=== PATIENT | female | born 1940 | race Caucasian/White ===

== ENCOUNTER 2017-03-23 20:08 | Emergency (ER) | payer OTHER ==
--- NOTE | ~2017-03-23 | EKG ---
PATIENT: TRICIA BECKER UNIT #: [id number] Ventricular Rate: 77 BPM Atrial Rate: 77 BPM P-R Interval: 164 ms QRS Duration: 78 ms Q-T Interval: 378 ms QTC Calculation(Bezet): 427 ms P Fulton: 20 degrees Calculated R [place]ulton: -10 degrees Calculated T Fulton: 61 degrees Diagnosis Line: Normal sinus rhythm Diagnosis Line: Normal ECG Diagnosis Line: When compared with ECG of 22-JUN-2014 12:09, Diagnosis Line: No significant change was found Diagnosis Line: Confirmed by ARMANDO OLIVEIRA MD ([id number]) on Diagnosis Line: 04/01/2017 8:27:57 AM INTERPRETING MD: TEE CLAIRE
--- NOTE | ~2017-03-23 | CT71 ---
[facility] A Service of [facility] RADIOLOGY TEXT RESULTS PATIENT: TRICIA BECKER LOCATION: SED : 38 UNIT #: [id number] AGE: [address]: TASHA LEMOS SEX: F ORDER DR: [id number] [place] [id number] E MR#: [id number] #: [id number] NAME: TRICIA BECKER. : 1940 SEX: F STUDY DATE/TIME: 03/23/2017 21:09 UNIT: SED ROOM: STUDY DESCRIPTION: CT Head Wo Contrast Attending Physician: Tasha Lemos Aprn Ordering Physician: Tasha Lemos Aprn Primary Care Physician: Chasity Turcios M.D. MEDICAL IMAGING REPORT This report is preliminary unless electronic signature is present. REVISED REPORT EXAM Head CT, no contrast, 03/23/17. INDICATIONS Syncopal episode prior to arrival, weakness, diabetes issues. TECHNIQUE Noncontrast CT of the brain was performed. We have no comparison studies. This CT exam was performed with one or more of the following radiation dose reduction techniques: automatic exposure control, adjustment of mA and/or kV according to patient size, and iterative reconstruction. FINDINGS CT BRAIN Sulci and ventricles are unremarkable. No midline shift. No evidence of acute intracranial hemorrhage. There is no mass, mass effect or edema to suggest acute infarct and no extraaxial fluid collections are present. Mild periventricular white matter changes are most characteristic of chronic ischemic small vessel disease. Probable chronic, but technically age indeterminate, lacunar infarct in the head of the caudate nucleus on the right. Globes are intact. Bones are intact. Sinuses clear. IMPRESSION 1. Atrophy and probable chronic ischemic changes. No clearly acute intracranial process. 2. Probable very tiny lacunar infarct in the right caudate nucleus. This is age indeterminate without prior studies for comparison, but likely represents a chronic finding. 3. Not mentioned above, incidental basal ganglia calcifications bilaterally. These appear physiologic. [facility] A Service of [facility] RADIOLOGY TEXT RESULTS PATIENT: TRICIA BECKER LOCATION: [facility] : 38 UNIT #: [id number] AGE: [address]: TASHA LEMOS SEX: F ORDER DR: Dictated by... David Bennett M.D. THIS IS AN ELECTRONICALLY VERIFIED REPORT David Bennett M.D. at 03/24/2017 2:33 PM NATHALIE/luis angel TD: 03/24/2017 08:48 JOB #: [id number] CC: Jesse/alivia Please Delete MEDICAL IMAGING REPORT Page 1 of 1
--- NOTE | ~2017-03-23 | CR63 ---
[facility] A Service of [facility] RADIOLOGY TEXT RESULTS PATIENT: TRICIA BECKER LOCATION: SED : 38 UNIT #: [id number] AGE: [address]: TASHA LEMOS SEX: F ORDER DR: [id number] [place] [id number] E MR#: [id number] Acc #: [id number] NAME: TRICIA BECKER. : 1940 SEX: F STUDY DATE/TIME: 03/23/2017 21:39 UNIT: SED ROOM: STUDY DESCRIPTION: CR Chest 2 View Attending Physician: Tasha Lemos Aprn Ordering Physician: Tasha Lemos Aprn Primary Care Physician: Chasity Turcios M.D. MEDICAL IMAGING REPORT This report is preliminary unless electronic signature is present. EXAM Two-view chest 03/23/2017 INDICATIONS 76-year-old female with altered consciousness. Left-sided weakness. Symptoms began just prior to arrival. Brought in by EMS. History of bladder and renal malignancy. TECHNIQUE Two-view chest no comparisons. FINDINGS Cardiac silhouette borderline in size. Aorta atherosclerotic. Vascularity within normal limits. Lung volumes are low and there is bronchovascular crowding. There is no dense consolidation or effusion. No pneumothorax. CP angles excluded from view on the lateral projection. IMPRESSION 1. Borderline cardiac size and low lung volumes. No effusion or dense consolidation. We have no comparisons. 2. There are some areas of probable band-like atelectasis in the lingula/right middle lobe on the lateral view. Dictated by... David Bennett M.D. THIS IS AN ELECTRONICALLY VERIFIED REPORT David Bennett M.D. at 03/24/2017 2:35 PM NATHALIE/nery TD: 03/24/2017 09:20 [facility] A Service [facility] RADIOLOGY TEXT RESULTS PATIENT: TRICIA BECKER LOCATION: SED : 38 UNIT #: [id number] AGE: [address]: TASHA LEMOS SEX: F ORDER DR: AMA #: [id number] MEDICAL IMAGING REPORT Page 1 of 1
[2017-03-23 21:12] LABS: BASOPHIL% 0.4 % (0-2.5); EOSINOPHIL% 0.4 % (0.0-7.0); HEMATOCRIT 39.8 % (35.0-45.0); HEMOGLOBIN 13.3 gm/dL (12.0-16.0); LYMPHOCYTE# 0.6 X10e3 (1.0-3.5); LYMPHOCYTE% 9.3 % (17.0-45.0); MEAN CELL VOLUME 81.1 FL (83-96); MEAN CORPUSCULAR HGB CONC 33.3 g/dL (30-36); MEAN PLATELET VOLUME 7.9 FL (6.5-11.5); MONOCYTE# 0.5 X10e3 (0-1.0); MONOCYTE% 8.4 % (3.0-12.0); NEUTROPHIL# 5.1 X10e3 (1.5-7.1); NEUTROPHIL% 81.5 % (40-75); PLATELET COUNT 131 X10e3 (140-420); RED BLOOD COUNT 4.91 X10e (3.90-5.30); RED CELL DISTRIBUTION WIDTH 20.7 % (11.0-15.5); WHITE BLOOD COUNT 6.3 X10e3 (4.0-10.5)
[2017-03-23 21:16] LABS: DIFF IND NO
[2017-03-23 21:18] LABS: POC - CKMB 1.5 ng/mL (0.0-7.9); POC - TROPONIN <0.05 ng/mL (<=0.05)
[2017-03-23 21:29] LABS: ALBUMIN SERUM 3.6 g/dL (3.5-5.0); BILIRUBIN, DIRECT 0.3 mg/dL (0.0-0.2); BILIRUBIN,TOTAL 1.3 mg/dL (0.2-2.0); BUN/CREATININE RATIO 11.42; CALCIUM SERUM 9.3 mg/dL (8.4-10.2); CREATININE SERUM 1.4 mg/dL (0.6-1.4); GLOM FILT RATE Estimated 35.9 mL/min (>60); POTASSIUM 3.1 mmol/L (3.5-5.1); PROTEIN TOTAL SERUM 7.6 g/dL (6.0-8.3)
[2017-03-23 22:40] LABS: POC - CKMB 1.3 ng/mL (0.0-7.9); POC - TROPONIN <0.05 ng/mL (<=0.05)
== END 2017-03-23 23:40 | disposition left against medical advice (07) ==
LOC: SED 20:08
PROVIDERS: Nurse Practitioner Family
DX: R55 Syncope and collapse (principal); R41.82 Altered mental status, unspecified; E78.5 Hyperlipidemia, unspecified; E11.9 Type 2 diabetes mellitus without complications; N28.9 Disorder of kidney and ureter, unspecified; Z90.49 Acquired absence of other specified parts of digestive tract; Z98.890 Other specified postprocedural states; Z88.5 Allergy status to narcotic agent; Z91.018 Allergy to other foods
CPT/HCPCS: 36415; 70450; 71020; 80048; 80076; 82553; 82947; 84484; 85025; 87040; 93005; 99285

== ENCOUNTER → 2017-06-19 | Outpatient (CLI) | payer OTHER ==
--- NOTE | ~2017-06-19 | MY30 ---
[facility] A Service of [facility] RADIOLOGY TEXT RESULTS PATIENT: TRICIA BECKER LOCATION: [facility] : 38 UNIT #: [id number] AGE: [address]: Chasity Turcios MD SEX: F ORDER DR: [id number] [address] [address] [id number] P MR#: [id number] Acc #: [id number] NAME: TRICIA BECKER : 1940 SEX: F STUDY DATE/TIME: 06/19/2017 10:39 UNIT: [facility] ROOM: STUDY DESCRIPTION: MY SCREEN BENJI BILAT DIGITAL Attending Physician: Chasity Turcios M.D. Referring Physician: Chasity Turcios M.D. Ordering Physician: Chasity Turcios M.D. Primary Care Physician: Chasity Turcios M.D. MEDICAL IMAGING REPORT This report is preliminary unless electronic signature is present. EXAM Digital screening mammogram 06/19/2017 HISTORY 76-year-old woman positive family history, sister. Prior right breast biopsy. Annual screen. COMPARISON Mammograms date to 06/08/2006 with most recent comparison 06/17/2016. FINDINGS Digital imaging of each breast was completed utilizing a two-view examination of each breast in craniocaudal and mediolateral-oblique projections. Review and interpretation of digital mammograms include a second review in conjunction with FDA-approved CAD device. There is a normal parenchymal presentation bilaterally consistent with the patient's age. There are no breast masses imaged and no parenchymal asymmetry is visualized. There are no suspicious microcalcifications and I see no focal architectural disturbance. IMPRESSION Negative screening digital mammogram. One-year followup recommended. Patients over the age of 40 are entered into a reminder system with target due date for the next mammogram. A result letter will also be sent to the patient. BIRADS: 1 Negative [facility] A Service [facility] RADIOLOGY TEXT RESULTS PATIENT: TRICIA BECKER LOCATION: [facility] : 38 UNIT #: [id number] AGE: [address]: Chasity Turcios MD SEX: F ORDER DR: Dictated by... Vernon Sanders M.D. THIS IS AN ELECTRONICALLY VERIFIED REPORT Vernon Sanders M.D. at 06/19/2017 3:33 PM TOBY/chidi TD: 06/19/2017 13:30 JOB #: [id number] MEDICAL IMAGING REPORT Page 1 of 1
== END | disposition home or self-care (01) ==
LOC: SMAM 09:29
DX: Z12.31 Encounter for screening mammogram for malignant neoplasm of breast (principal); Z80.3 Family history of malignant neoplasm of breast; Z98.890 Other specified postprocedural states
CPT/HCPCS: G0202